=== PATIENT | female | born 1950 | race Caucasian/White ===

== ENCOUNTER → 2016-12-16 | Outpatient (CLI) | payer BC | LOC: FIMAGING 17:20 | PROVIDERS: ATTEND Family Medicine Sports Medicine | DX: R06.09 Other forms of dyspnea (principal); R06.2 Wheezing; I10 Essential (primary) hypertension ==

== ENCOUNTER → 2017-06-12 | Outpatient (CLI) | payer BC | LOC: FIMAGING 13:57 | PROVIDERS: ATTEND Surgery | DX: Z12.31 Encounter for screening mammogram for malignant neoplasm of breast (principal) | CPT/HCPCS: G0202 ==

== ENCOUNTER → 2017-06-20 | Outpatient (CLI) | payer BC | LOC: FIMAGING 13:29 | PROVIDERS: ATTEND Surgery | DX: R92.0 Mammographic microcalcification found on diagnostic imaging of breast (principal) | CPT/HCPCS: G0206 ==

== ENCOUNTER → 2017-06-24 | Day surgery (SDC) | payer BC ==
[~2017-06-24] MED LIST: BUPIVACAINE 0.5% 10 ML SDV ONE; LIDO/EPI 1% **Not for Epidural 20 ML MDV ONE; LIDOCAINE 1% 300 MG/30 ML SDV ONE; THROMBIN (BOVINE) 5,000 UNIT VIAL TP ONE
== END | disposition home or self-care (01) ==
LOC: FIMAGING 07:09
PROVIDERS: ATTEND Surgery
PROC: 0HBT3ZX Excision of Right Breast, Percutaneous Approach, Diagnostic (ICD-10-PCS; principal; 2017-06-24)
DX: C50.811 Malignant neoplasm of overlapping sites of right female breast (principal)
CPT/HCPCS: G0206

== ENCOUNTER → 2017-07-01 | Outpatient (CLI) | payer BC ==
[~2017-07-01] MED LIST changes: -BUPIVACAINE 0.5% 10 ML SDV ONE; +GADOBUTROL 10 ML VIAL IVP ONE; -LIDO/EPI 1% **Not for Epidural 20 ML MDV ONE; -LIDOCAINE 1% 300 MG/30 ML SDV ONE; -THROMBIN (BOVINE) 5,000 UNIT VIAL TP ONE
== END ==
LOC: FIMAGING 16:38
PROVIDERS: ATTEND Surgery
DX: C50.411 Malignant neoplasm of upper-outer quadrant of right female breast (principal); R92.8 Other abnormal and inconclusive findings on diagnostic imaging of breast
CPT/HCPCS: 0159T; 77059; A9585; C8908

== ENCOUNTER 2017-07-11 07:15 | Day surgery (SDC) | payer BC ==
[2017-07-11] MEDS ORDERED: LIDOCAINE 1% 300 MG/30 ML SDV ONE (07:24)
--- NOTE | 2017-07-11 07:27 | PDGENHP ---
History & Physical Chief Complaint: breast cancer History of Present Illness: 67 yo with right breast cancer - invasive ductal grade 1 Pertinent Past, Social, Family History: hypertension, traumatic brain injury,. SH: No tobacco, etoh or drugs. FH: mom with breast cancer Relevant Physical Exam: General: Pleasant, well-nourished and well-groomed woman. HENT: Normocephalic, no gross hearing deficits, mucous membranes moist, pupils equal and round, no scleral icterus. Lymph: No cervical, supraclavicular or axillary lymphadenopathy. Breast exam without masses. Lungs : Clear to auscultation bilaterally, No increased work of breathing. Cardiac: Regular rate, no peripheral edema. Skin: Warm and dry. MSK: Normal gait and normal nails. Psych: Mood and affect normal. Neuro: Grossly intact. Assessment and Plan: I will take her to the operating room for a generous lumpectomy and sentinel lymph node for her invasive ductal carcinoma of the right breast. Risks and benefits were discussed.
--- NOTE | 2017-07-11 07:36 | GHP ---
[f rep st] HISTORY AND PHYSICAL DATE OF ADMISSION: 07/11/2017 HISTORY OF PRESENT ILLNESS: The patient is a 67-year-old woman, who has been followed due to nodules in her breast. She does have discomfort and heaviness when exercising. She has had previous surgic al biopsy. This year she had a mammogram in May which showed increasing microcalcifications in the lower outer right breast. She had a diagnostic mammogram followed by a stereotactic breast biop sy. The breast biopsy showed invasive ductal carcinoma, grade 1, ER positive WV weakly positive, HER -2/jaki negative. She subsequently had a breast MRI which showed minimal residual malignant disease i n the lower outer quadrant of the right breast at the site of the prior stereotactic biopsy. She als o had an additional small amount of abnormal enhancement in the deep central right breast approximate ly 2.4 cm medial and superior from the lesion. PAST MEDICAL HISTORY: Hypertension, closed head injury. PAST SURGICAL HISTORY: Hysterectomy at age 48 due to fibroids. Ganglion cyst right hand. MEDICATIONS: Dulera, hydrochlorothiazide, Lamictal, potassium, Voltaren, multivitamin, vitamin D3. FAMILY MEDICAL HISTORY: Bipolar, hypertension, hypothyroid. SOCIAL HISTORY: She does not use tobacco, alcohol or illegal drugs. She splits her time between [facility] and [place]. REVIEW OF SYSTEMS: A 10-point review of systems negative. PHYSICAL EXAMINATION: GENERAL: Pleasant, well-nourished, well-groomed woman. HEENT: Normocephalic . No gross hearing deficits. Mucous membranes moist. Pupils equal and round. No scleral icterus. LUNGS: Clear to auscultation bilaterally. No increased work of breathing. CARDIAC: Regular rate. No peripheral edema. LYMPH: No cervical, supraclavicular or axillary lymphadenopathy. BREAST: E xam performed in the upright and supine position. No masses palpated on either breast. MUSCULOSKELE NADIA: Normal gait. Normal nails. SKIN: Warm and dry. PSYCH: Mood and affect normal. Results rev iewed. See HPI. IMPRESSION/PLAN: The patient is a 67-year-old, with a right breast invasive ductal carcinoma, grade 1, ER positive, WV negative and HER-2/jaki negative with a possible lesion that is approximately 2.4 c m superior and medial to the biopsied site. We discussed MRI guided biopsy of this site. We also di scussed taking a generous lumpectomy. The patient would like to proceed with a generous lumpectomy. She understands that we will recommend radiation after surgery. She may decide to get the remaining care at [place]. /[id number]/MODL
--- NOTE | 2017-07-11 07:36 | GHP ---
[f rep st] HISTORY AND PHYSICAL DATE OF ADMISSION: 07/11/2017 HISTORY OF PRESENT ILLNESS: The patient is a 67-year-old woman, who has been followed due to nodules in her breast. She does have discomfort and heaviness when exercising. She has had previous surgic al biopsy. This year she had a mammogram in May which showed increasing microcalcifications in the lower outer right breast. She had a diagnostic mammogram followed by a stereotactic breast biop sy. The breast biopsy showed invasive ductal carcinoma, grade 1, ER positive MS weakly positive, HER -2/jaki negative. She subsequently had a breast MRI which showed minimal residual malignant disease i n the lower outer quadrant of the right breast at the site of the prior stereotactic biopsy. She als o had an additional small amount of abnormal enhancement in the deep central right breast approximate ly 2.4 cm medial and superior from the lesion. PAST MEDICAL HISTORY: Hypertension, closed head injury. PAST SURGICAL HISTORY: Hysterectomy at age 48 due to fibroids. Ganglion cyst right hand. MEDICATIONS: Dulera, hydrochlorothiazide, Lamictal, potassium, Voltaren, multivitamin, vitamin D3. FAMILY MEDICAL HISTORY: Bipolar, hypertension, hypothyroid. SOCIAL HISTORY: She does not use tobacco, alcohol or illegal drugs. She splits her time between [facility] and [place]. REVIEW OF SYSTEMS: A 10-point review of systems negative. PHYSICAL EXAMINATION: GENERAL: Pleasant, well-nourished, well-groomed woman. HEENT: Normocephalic . No gross hearing deficits. Mucous membranes moist. Pupils equal and round. No scleral icterus. LUNGS: Clear to auscultation bilaterally. No increased work of breathing. CARDIAC: Regular rate. No peripheral edema. LYMPH: No cervical, supraclavicular or axillary lymphadenopathy. BREAST: E xam performed in the upright and supine position. No masses palpated on either breast. MUSCULOSKELE NADIA: Normal gait. Normal nails. SKIN: Warm and dry. PSYCH: Mood and affect normal. Results rev iewed. See HPI. IMPRESSION/PLAN: The patient is a 67-year-old, with a right breast invasive ductal carcinoma, grade 1, ER positive, MS negative and HER-2/jaki negative with a possible lesion that is approximately 2.4 c m superior and medial to the biopsied site. We discussed MRI guided biopsy of this site. We also di scussed taking a generous lumpectomy. The patient would like to proceed with a generous lumpectomy. She understands that we will recommend radiation after surgery. She may decide to get the remaining care at [place]. /[id number]/MODL
[2017-07-11] MEDS ORDERED: ceFAZolin 2 GM/SWFI 2 GM/20 ML SYR IVP ONE (08:55)
[2017-07-11] MEDS ORDERED: BUPIVACAINE 0.5% 30 ML SDV ONE (10:26)
--- NOTE | 2017-07-11 11:46 | PDANEPAE ---
ANE History of Present Illness 67 year old female w/ PMHx of HTN, mild asthma, ALLISON risk factors, obesity and PONV presents for lumpectomy w/ SLN biopsy. ANE Past Medical History - Cardiovascular History Hx Hypertension: Yes Hx Arrhythmias: No Hx Chest Pain: No Hx Coronary Artery / Peripheral Vascular Disease: No Hx CHF / Valvular Disease: No Hx Palpitations: No - Pulmonary History Hx COPD: No Hx Asthma/Reactive Airway Disease: Yes Hx Recent Upper Respiratory Infection: No Hx Oxygen in Use at Home: No Hx Sleep Apnea: Yes Sleep Apnea Screening Result - Last Documented: Positive Pulmonary History Comment: mild asthma enviromental induced - Neurologic History Hx Cerebrovascular Accident: No Hx Seizures: No Hx Dementia: No - Endocrine History Hx Diabetes: No Hypothyroid: No Hyperthyroid: No Obesity: yes, moderate - Renal History Hx Renal Disorders: Yes Renal History Comment: urgency - Liver History Hx Hepatic Disorders: No - Cancer History Hx Cancer: No - Congenital Disorder History Hx Congenital Disorders: Yes 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 - GI History Hx Gastrointestinal Disorders: No - Other Health History Other Health History: vasculitis - Chronic Pain History Chronic Pain: Yes (arthritis to clint and feet) - Surgical History Prior Surgeries: lumpectomy 12/30 ANE Review of Systems Review of Systems: - Exercise capacity Exercise capacity: >=4 METS METS (RN): 4 METS ANE Patient History - Allergies Allergies/Adverse Reactions: codeine [Codeine] Allergy (Intermediate, Verified 10/31/12 21:56) UPSET STOMACH adhesive Allergy (Verified 06/23/17 14:53) - Home Medications Home medications: home medication list seen and reviewed Home Medications: Acyclovir 500 mg PO BID 10/31/12 [Last Taken Unknown] lamOTRIGine [LamICTAL] 50 mg PO DAILY 10/31/12 [Last Taken 07/10/17 23:30] Hydrochlorothiazide 25 mg 07/11/17 [Last Taken 07/10/17 23:30] - NPO status NPO Status: no food or drink >8 hours NPO Since - Liquids (Date): 07/10/17 NPO Since - Liquids (Time): 03:15 NPO Since - Solids (Date): 07/10/17 NPO Since - Solids (Time): 22:00 - Anes Hx Anes Hx: post operative nausea and vomiting - Smoking Hx Smoking Status: Never smoked - Alcohol Use Alcohol Use: Rarely - Family Anes Hx Family Anes Hx: neg - N/A Family Hx Anesthesia Complications: none ANE Labs/Vital Signs - Vital Signs Vital Signs: reviewed preoperatively; see RN documention for details Blood Pressure: 143/85 Heart Rate: 82 Respiratory Rate: 16 O2 Sat (%): 95 Height: 165.1 cm Weight: 106.594 kg ANE Physical Exam - Airway Neck exam: FROM Mallampati Score: Class 2 Mouth exam: normal dental/mouth exam - Pulmonary Pulmonary: no respiratory distress - Cardiovascular Cardiovascular: regular rate and rhythym - ASA Status ASA Status: III ANE Anesthesia Plan Anesthesia Plan: GA w LMA Total IV Anesthesia: No
[2017-07-11] MEDS ORDERED: ceFAZolin 2 GM/SWFI 20 ML SYR IVP ONE (12:11)
[2017-07-11] MEDS ORDERED: MIDAZOLAM 2 MG/2 ML VIAL IVP ONE (12:29)
[2017-07-11] MEDS ORDERED: SCOPOLAMINE HYDROBROMIDE 1 MG/3 DAYS PATCH TD SCH (12:30)
[2017-07-11] MEDS ORDERED: SCOPOLAMINE HYDROBROMIDE 1 MG/3 DAYS PATCH TD ONE (12:34)
[2017-07-11] MEDS ORDERED: MIDAZOLAM 2 MG/2 ML VIAL ONE (12:34)
[2017-07-11] MEDS ORDERED: PROPOFOL/EMULSION 500 MG/50 ML BOTTLE IV ONE ×3 (12:36→13:16)
[2017-07-11] MEDS ORDERED: fentaNYL 100 MCG/2 ML INJ ONE ×2 (12:41→14:06)
[2017-07-11] MEDS ORDERED: DEXAMETHASONE 4 MG/ML VIAL ONE (12:41)
[2017-07-11] MEDS ORDERED: ONDANSETRON 4 MG/2 ML VIAL ONE (12:41)
[2017-07-11] MEDS ORDERED: LIDOCAINE 1% 2 ML INJ ONE (13:13)
[2017-07-11] MEDS ORDERED: NALOXONE HCL 0.4 MG/ML INJ IVP PRN (13:22)
[2017-07-11] MEDS ORDERED: HYDROmorphONE/DILAUDID 1 MG/ML INJ IVP PRN (13:22)
[2017-07-11] MEDS ORDERED: ONDANSETRON 4 MG/2 ML VIAL IVP PRN (13:22)
--- NOTE | 2017-07-11 13:23 | POSTOPPROG ---
Post Op Note Date of Operation: 07/11/17 Surgeon: Dorothy Mckeon Triage Registered Nurse: kenn Anesthesiologist: leana Anesthesia: IV Sedation Pre-op Diagnosis: R breast cancer Post-op Diagnosis: same Indication: 67yo F with newly dx right breast cancer Procedure: R lumpectomy with right SLN biopsy Findings: SLN negative Inf/Abcess present in the surg proc area at time of surgery?: No Depth: Deep Incisional (Fascial) EBL: Minimal
[2017-07-11] MEDS ORDERED: KETOROLAC 30 MG/1 ML SDV ONE (13:32)
[2017-07-11] MEDS: fentaNYL 100 MCG/2 ML INJ IVP PRN ×4 (14:10→14:35)
[2017-07-11] MEDS ORDERED: HYDROCODONE/APAP 5/325 TAB ONE (14:39)
[2017-07-11] MEDS: HYDROCODONE/APAP 5/325 TAB PO PRN ×2 (14:41→15:47)
[2017-07-11 14:49] VITALS: TEMP 97.5
[2017-07-11 15:07] VITALS: RESP 16
[2017-07-11 16:25] VITALS: O2SAT 98
[2017-07-11 17:06] VITALS: BP 118/71; PULSE 66
--- NOTE | 2017-07-11 18:05 | POSTANESTH ---
Post Anesthetic Evaluation Cardiovascular Status: Normal, Stable, Similar to Pre-Op Cond Respiratory Status: Normal, Stable, Similar to Pre-op Cond. Level of Consciousness/Mental Status: Can Participate in Eval, Alert and Oriented Pain Control: Adequate, Prn Tx Ordered Nausea/Vomiting Control: Adequate, Prn Tx Ordered Complications Possibly Related to Anesthesia: None Noted
--- NOTE | 2017-07-12 10:32 | GOP ---
[f rep st] OPERATIVE REPORT DATE OF OPERATION: 07/11/2017 SURGEON: Dorothy Mckeon MD MACHINE BANDER AND CELLOPHANER: Diane Kilgore, EDER ANESTHESIA: General. ANESTHESIOLOGIST: Beto Clinton MD PREOPERATIVE DIAGNOSIS: Right breast lower outer invasive ductal carcinoma. POSTOPERATIVE DIAGNOSIS: Right breast lower outer invasive ductal carcinoma. PROCEDURE PERFORMED: Right breast needle localized lumpectomy with right sentinel lymph node. FINDINGS: Negative sentinel lymph node and clip within the specimen. ESTIMATED BLOOD LOSS: 10 cc. INDICATIONS: The patient is a 67-year-old woman who developed a suspicious area on her right breast on her screening mammogram. This ultimately was biopsied and found to have invasive ductal carcinoma . She had an MRI, which also showed another area 2.4 cm superior and medial to the initial site. We discussed MRI-guided biopsy versus generous lumpectomy. The patient elected to have generous lumpec андрей. DESCRIPTION OF PROCEDURE: The patient was brought into the operating room, placed supine on the tabl e, and general anesthesia was administered. Her right breast and axilla were prepped and draped in t he usual sterile fashion. I infiltrated all sites with 0.5% Marcaine prior to making incisions. I u sed a total of 30 cc of 0.5% Marcaine. I made an ellipse around the wire. I created superior and in ferior skin flaps. I dissected down beyond the level of the wire. I made the area in the superomedi al aspect more generous to obtain the other area found on MRI. The specimen was excised and inked gr een anterior, red superior, yellow medial, blue inferior, orange lateral, and black posterior. This was submitted to Radiology. Mammography was obtained, which showed the clip in the area of concern w ithin the specimen. I made an incision beneath the hair-bearing portion in her right axilla. I diss ected down through the axillary space. I used the gamma probe to identify the sentinel lymph nodes. There were 2 right next to each other. I excised these, and they measured over 1000 ex vivo. I ret urned the probe to the cavity, and it was quiet. Frozen section was obtained on the sentinel lymph n odes, and they were negative for malignancy. I returned to the lumpectomy cavity and obtained anothe r margin; superior inked red, medial inked yellow, inferior inked blue, lateral inked orange, posteri or inked black. These were submitted to Pathology for permanent. I marked this specimen cavity with 3 titanium clips. Hemostasis was achieved in both cavities. The lumpectomy cavity was closed with 2 deep layers of 3-0 Vicryl, and the skin was closed with 3-0 Vicryl, followed by 4-0 Monocryl. The right axilla wound was closed with 3-0 Vicryl, followed by 4-0 Monocryl. Dermabond applied. She was awakened in the operating room, extubated, and transferred to PACU in stable condition. /[id number]/MODL
[2017-07-14] MEDS ORDERED: PATCH REMOVAL 1 EA PATCH TD SCH (12:29)
== END 2017-07-11 16:51 | disposition home or self-care (01) ==
LOC: FIMAGING 07:15
PROVIDERS: ATTEND Surgery
PROC: 3E0W3KZ Introduction of Other Diagnostic Substance into Lymphatics, Percutaneous Approach (ICD-10-PCS; 2017-07-11)
PROC: BH00ZZZ Plain Radiography of Right Breast (ICD-10-PCS; 2017-07-11)
PROC: 07B50ZX Excision of Right Axillary Lymphatic, Open Approach, Diagnostic (ICD-10-PCS; principal; 2017-07-11 12:15)
PROC: 0HBT0ZZ Excision of Right Breast, Open Approach (ICD-10-PCS; principal; 2017-07-11 12:15)
DX: D05.11 Intraductal carcinoma in situ of right breast (principal); Z80.3 Family history of malignant neoplasm of breast; E06.3 Autoimmune thyroiditis; F41.9 Anxiety disorder, unspecified; F50.9 Eating disorder, unspecified; G47.33 Obstructive sleep apnea (adult) (pediatric); Z87.820 Personal history of traumatic brain injury
CPT/HCPCS: 19301; 38500; 76098; 78195; A9520; J0690; J1100; J1885; J2250; J2405; J2704; J3010

== ENCOUNTER → 2017-07-26 | Outpatient (CLI) | payer BC | LOC: FIMAGING 13:59 | PROVIDERS: ATTEND Internal Medicine Hematology & Oncology | DX: Z13.820 Encounter for screening for osteoporosis (principal); C50.919 Malignant neoplasm of unspecified site of unspecified female breast; Z82.62 Family history of osteoporosis ==